=== PATIENT | male | born 1990 | race Two or more races ===

== ENCOUNTER 2021-11-29 10:10 | Inpatient (IN) | payer OTHER, MEDICAID ==
[~2021-11-29] VITALS: Ht 167.6 cm; Wt 127.1 kg
[2021-11-29] MEDS ORDERED: OMEP20 PO (10:23)
[2021-11-29] MEDS ORDERED: IBUP-2071 PO (10:23)
[2021-11-29] MEDS ORDERED: IOHEXOL 350 MG/ML 100 ML VIAL ONE (10:29)
[2021-11-29] MEDS ORDERED: SODIUM CHLORIDE 0.9% 100 ML ONE (10:29)
[2021-11-29] MEDS ORDERED: VANCOMYCIN 1GM/WATER(PEG/NADA) 200 ML IV ONE (10:30)
[2021-11-29] MEDS ORDERED: KETOROLAC TROMETHAMINE 30 MG/ML VIAL IVP ONE (10:30)
[2021-11-29] MEDS ORDERED: ACETAMINOPHEN 500 MG TABLET PO ONE (10:30)
[2021-11-29 10:49] LABS: COVID AG,FIA SOURCE NASOPHARYNGEAL
[2021-11-29 10:55] LABS: BASOPHILS % (AUTO) 0.8 % (0.0-2.0); EOSINOPHILS % (AUTO) 3.1 % (1.0-6.0); HEMATOCRIT 43.9 % (41-53); HEMOGLOBIN 14.2 g/dL (13.5-17.5); LYMPHOCYTES # (AUTO) 2.5 K/uL (1.0-4.8); LYMPHOCYTES % (AUTO) 28.4 % (22.0-44.0); MEAN CORPUSCULAR HEMOGLOBIN 31.4 pg (26.0-34.0); MEAN CORPUSCULAR HGB CONC 32.3 G/dL (31.0-37.0); MEAN CORPUSCULAR VOLUME 97 fL (80-100); MONOCYTES # (AUTO) 0.9 K/uL (0.1-1.0); MONOCYTES % (AUTO) 10.8 % (2.0-9.0); NEUTROPHILS # (AUTO) 4.9 K/uL (1.8-7.7); NEUTROPHILS % (AUTO) 56.9 % (40.0-70.0); PLATELET COUNT (AUTO) 269 K/uL (150-450); RED CELL DISTRIBUTION WIDTH 13.5 % (11.5-14.5)
[2021-11-29 11:01] LABS: ANION GAP 4 mmol/L (8-16); CALCIUM, TOTAL 8.7 mg/dL (8.8-10.5); CARBON DIOXIDE 31 mmol/L (22-29); CHLORIDE 105 mmol/L (98-107); CREATININE 0.76 mg/dL (0.60-1.30); GLOMERULAR FILTR. RATE CALC > 60 mL/min (>60); GLUCOSE,RANDOM 102 mg/dL (70-110); POTASSIUM 3.7 mmol/L (3.5-5.1); SODIUM SERUM 140 mmol/L (136-145); UREA NITROGEN, BLOOD 10 mg/dL (7-18)
[2021-11-29 11:07] LABS: ALANINE AMINOTRANSFERASE 59 U/L (12-78); ALBUMIN 3.7 g/dL (3.4-5.0); ALKALINE PHOSPHATASE 83 U/L (46-116); ASPARTATE AMINOTRANSFERASE 20 U/L (15-37); BILIRUBIN,TOTAL 0.6 mg/dL (0.1-1.0); TOTAL PROTEIN, SERUM 7.4 g/dL (6.4-8.2)
[2021-11-29] MEDS ORDERED: SODIUM CHLORIDE 0.9% 1,000 ML IV ONE (12:45)
[2021-11-29] MEDS ORDERED: CefTRIAXone SODIUM 2 GM in DEXTROSE 5%-WATER 50 ML IV SCH (13:00)
[2021-11-29] MEDS ORDERED: SODIUM CHLORIDE 0.9% 250 ML IV ONE (14:31)
[2021-11-29 15:07] VITALS: BP 131/92
[2021-11-29] MEDS: VANCOMYCIN HCL 1.25 GM in DEXTROSE 5%-WATER 250 ML IV SCH ×2 (16:26→23:45)
[2021-11-29 19:50] VITALS: BP 123/70
[2021-11-29] MEDS: DOCUSATE SODIUM 100 MG CAPSULE PO SCH (21:12)
[2021-11-30 04:00] VITALS: BP 120/61
[2021-11-30 07:36] VITALS: BP 113/76
[2021-11-30 07:52] LABS: ANION GAP 5 mmol/L (8-16); CARBON DIOXIDE 31 mmol/L (22-29); CHLORIDE 104 mmol/L (98-107); CREATININE 0.74 mg/dL (0.60-1.30); GLUCOSE,RANDOM 83 mg/dL (70-110); POTASSIUM 3.8 mmol/L (3.5-5.1); SODIUM SERUM 140 mmol/L (136-145); UREA NITROGEN, BLOOD 10 mg/dL (7-18)
[2021-11-30 07:54] LABS: GLOMERULAR FILTR. RATE CALC > 60 mL/min (>60)
[2021-11-30] MEDS: PANTOPRAZOLE SODIUM 40 MG/VIAL IVP SCH (08:31)
[2021-11-30] MEDS: DOCUSATE SODIUM 100 MG CAPSULE PO SCH ×2 (08:31→21:19)
[2021-11-30] MEDS: VANCOMYCIN HCL 1.25 GM in DEXTROSE 5%-WATER 250 ML IV SCH ×2 (08:40→16:17)
[2021-11-30] MEDS: CEFEPIME HCL 2 GM in DEXTROSE 5%-WATER 50 ML IV SCH ×2 (11:48→18:30)
[2021-11-30] MEDS: MetroNIDAZOLE 500 MG/NACL 100 ML IV SCH ×3 (12:51→23:15)
[2021-11-30 15:40] VITALS: BP 116/67
[2021-11-30 20:22] VITALS: BP 122/70
[2021-11-30 21:44] VITALS: BP 109/77
[2021-11-30] MEDS ORDERED: GADOTERATE MEGLUMINE 10 MMOL/20 ML VIAL IVP ONE (23:41)
[2021-12-01 00:08] VITALS: BP 116/76
[2021-12-01] MEDS: CEFEPIME HCL 2 GM in DEXTROSE 5%-WATER 50 ML IV SCH ×3 (02:00→20:47)
[2021-12-01] MEDS: VANCOMYCIN HCL 1.25 GM in DEXTROSE 5%-WATER 250 ML IV SCH ×2 (02:03→08:32)
[2021-12-01 04:57] VITALS: BP 114/65
[2021-12-01] MEDS: MetroNIDAZOLE 500 MG/NACL 100 ML IV SCH ×4 (05:39→23:23)
[2021-12-01 06:08] LABS: ANION GAP 7 mmol/L (8-16); C-REACTIVE PROTEIN QUANT 0.51 mg/dL (0.00-0.30); CALCIUM, TOTAL 8.8 mg/dL (8.8-10.5); CARBON DIOXIDE 27 mmol/L (22-29); CHLORIDE 103 mmol/L (98-107); CREATININE 0.88 mg/dL (0.60-1.30); GLUCOSE,RANDOM 110 mg/dL (70-110); POTASSIUM 3.4 mmol/L (3.5-5.1); SODIUM SERUM 137 mmol/L (136-145); UREA NITROGEN, BLOOD 12 mg/dL (7-18); VANCOMYCIN,RANDOM 27.6 mcg/mL (25.0-50.0)
[2021-12-01 06:10] LABS: GLOMERULAR FILTR. RATE CALC > 60 mL/min (>60)
[2021-12-01 07:28] VITALS: BP 116/76
[2021-12-01] MEDS: PANTOPRAZOLE SODIUM 40 MG/VIAL IVP SCH (08:32)
[2021-12-01] MEDS: DOCUSATE SODIUM 100 MG CAPSULE PO SCH ×2 (08:32→20:47)
[2021-12-01] MEDS ORDERED: POTASSIUM CHLORIDE 20 MEQ ER TABLET PO PRN (10:15)
[2021-12-01] MEDS ORDERED: POTASSIUM CHL 10 MEQ/WATER 50 ML IV PRN (10:15)
[2021-12-01 11:09] VITALS: BP 125/74
[2021-12-01 15:14] VITALS: BP 126/83
[2021-12-01] MEDS: VANCOMYCIN 1GM/WATER(PEG/NADA) 200 ML IV SCH (16:54)
[2021-12-01 20:17] VITALS: BP 121/80
[2021-12-02 00:28] VITALS: BP 120/77
[2021-12-02] MEDS: VANCOMYCIN 1GM/WATER(PEG/NADA) 200 ML IV SCH ×3 (00:43→15:51)
[2021-12-02] MEDS: CEFEPIME HCL 2 GM in DEXTROSE 5%-WATER 50 ML IV SCH ×3 (02:08→20:00)
[2021-12-02 03:28] LABS: BASOPHILS % (AUTO) 0.5 % (0.0-2.0); EOSINOPHILS % (AUTO) 3.2 % (1.0-6.0); HEMATOCRIT 44.2 % (41-53); HEMOGLOBIN 14.7 g/dL (13.5-17.5); LYMPHOCYTES # (AUTO) 2.9 K/uL (1.0-4.8); LYMPHOCYTES % (AUTO) 30.5 % (22.0-44.0); MEAN CORPUSCULAR HEMOGLOBIN 32.2 pg (26.0-34.0); MEAN CORPUSCULAR HGB CONC 33.3 G/dL (31.0-37.0); MEAN CORPUSCULAR VOLUME 97 fL (80-100); MONOCYTES # (AUTO) 0.8 K/uL (0.1-1.0); MONOCYTES % (AUTO) 8.6 % (2.0-9.0); NEUTROPHILS # (AUTO) 5.4 K/uL (1.8-7.7); NEUTROPHILS % (AUTO) 57.2 % (40.0-70.0); PLATELET COUNT (AUTO) 299 K/uL (150-450); RED BLOOD CELL COUNT(AUTO) 4.57 MIL/uL (4.50-5.90); RED CELL DISTRIBUTION WIDTH 13.6 % (11.5-14.5)
[2021-12-02 04:55] VITALS: BP 109/66
[2021-12-02] MEDS: MetroNIDAZOLE 500 MG/NACL 100 ML IV SCH ×4 (05:35→22:57)
[2021-12-02 07:50] VITALS: BP 125/82
[2021-12-02] MEDS: DOCUSATE SODIUM 100 MG CAPSULE PO SCH ×2 (07:57→20:00)
[2021-12-02] MEDS: PANTOPRAZOLE SODIUM 40 MG/VIAL IVP SCH (08:00)
[2021-12-02] MEDS ORDERED: RINGERS SOLUTION,LACTATED 1,000 ML IV ONE (10:00)
[2021-12-02] MEDS ORDERED: LIDOCAINE 1%/EPI 1:200,000/PF 30 ML VIAL ONE (11:05)
[2021-12-02] MEDS ORDERED: VANCOMYCIN HCL 1 GM/VIAL ONE (11:05)
[2021-12-02] MEDS ORDERED: BACITRACIN 28 GM OINTMENT TP ONE (11:05)
[2021-12-02] MEDS ORDERED: SODIUM CHLORIDE 0.9% 0 ML ONE (11:06)
[2021-12-02] MEDS ORDERED: GELATIN SPONGE,ABSORBABLE 100 MM TP ONE (11:06)
[2021-12-02] MEDS ORDERED: GELATIN SPONGE,ABSORBABLE 50 MM TP ONE (11:06)
[2021-12-02] MEDS ORDERED: MIDAZOLAM HCL 2 MG/2 ML VIAL IVP ONE (12:00)
[2021-12-02] MEDS ORDERED: PROPOFOL 1% 20 ML VIAL IVP ONE (12:00)
[2021-12-02] MEDS ORDERED: ROCURONIUM BROMIDE 10 MG/ML 5 ML VIAL IVP ONE (12:00)
[2021-12-02] MEDS ORDERED: LIDOCAINE/PF 2% 5 ML VIAL IM ONE (12:00)
[2021-12-02] MEDS ORDERED: ONDANSETRON HCL 4 MG/2 ML VIAL IVP ONE (12:00)
[2021-12-02] MEDS ORDERED: FentaNYL CITRATE PF 100 MCG/2 ML VIAL IVP ONE (12:00)
[2021-12-02] MEDS ORDERED: HYDROGEN PEROXIDE 473 ML SOLUTION ONE (12:19)
[2021-12-02] MEDS ORDERED: SUGAMMADEX SODIUM 200 MG/2 ML VIAL IVP ONE ×2 (13:57→13:59)
[2021-12-02] MEDS ORDERED: ACETAMINOPHEN 1000 MG/ISO-OSM 100 ML IV ONE ×2 (14:22→14:30)
[2021-12-02] MEDS: HYDROmorphone HCL 2 MG/ML SYRINGE IVP PRN ×4 (14:29→14:52)
[2021-12-02] MEDS ORDERED: FentaNYL CITRATE PF 100 MCG/2 ML VIAL IVP PRN (14:30)
[2021-12-02] MEDS ORDERED: FentaNYL CITRATE PF 100 MCG/2 ML VIAL ONE (14:40)
[2021-12-02] MEDS ORDERED: HYDROmorphone HCL 2 MG/ML SYRINGE IVP ONE (14:45)
[2021-12-02 16:15] VITALS: BP 126/71
[2021-12-02] MEDS: ONDANSETRON HCL 4 MG/2 ML VIAL IVP PRN (17:30)
[2021-12-02] MEDS: OXYGEN THERAPY IH SCH (20:00)
[2021-12-02 20:30] VITALS: BP 108/77
[2021-12-03 00:33] VITALS: BP 116/70
[2021-12-03] MEDS: VANCOMYCIN 1GM/WATER(PEG/NADA) 200 ML IV SCH (00:42)
[2021-12-03] MEDS: OxyCODONE HCL/ACETAMINOPHEN 5-325 MG TABLET PO PRN ×3 (00:49→18:55)
[2021-12-03] MEDS: CEFEPIME HCL 2 GM in DEXTROSE 5%-WATER 50 ML IV SCH ×3 (02:57→18:55)
[2021-12-03] MEDS: MetroNIDAZOLE 500 MG/NACL 100 ML IV SCH ×4 (05:07→23:16)
[2021-12-03 05:33] VITALS: BP 134/74
[2021-12-03 07:50] VITALS: BP 134/78
[2021-12-03] MEDS: OXYGEN THERAPY IH SCH (08:00)
[2021-12-03] MEDS: PANTOPRAZOLE SODIUM 40 MG/VIAL IVP SCH (08:46)
[2021-12-03] MEDS: VANCOMYCIN HCL 1.25 GM in DEXTROSE 5%-WATER 250 ML IV SCH ×2 (08:46→16:54)
[2021-12-03] MEDS: DOCUSATE SODIUM 100 MG CAPSULE PO SCH ×2 (09:00→19:59)
[2021-12-03 09:48] LABS: ANION GAP 7 mmol/L (8-16); CALCIUM, TOTAL 8.8 mg/dL (8.8-10.5); CARBON DIOXIDE 27 mmol/L (22-29); CHLORIDE 101 mmol/L (98-107); CREATININE 0.99 mg/dL (0.60-1.30); GLOMERULAR FILTR. RATE CALC > 60 mL/min (>60); GLUCOSE,RANDOM 130 mg/dL (70-110); POTASSIUM 3.7 mmol/L (3.5-5.1); SODIUM SERUM 135 mmol/L (136-145); UREA NITROGEN, BLOOD 10 mg/dL (7-18)
[2021-12-03 11:55] VITALS: BP 127/75
[2021-12-03 16:10] VITALS: BP 131/77
[2021-12-03] MEDS ORDERED: SODIUM CHLORIDE 0.9% 250 ML IV ONE (18:51)
[2021-12-03] MEDS ORDERED: SODIUM CHLORIDE 0.9% 500 ML IV ONE (23:24)
[2021-12-04] MEDS: VANCOMYCIN HCL 1.25 GM in DEXTROSE 5%-WATER 250 ML IV SCH ×3 (01:21→17:18)
[2021-12-04] MEDS: OxyCODONE HCL/ACETAMINOPHEN 5-325 MG TABLET PO PRN ×2 (01:27→18:53)
[2021-12-04] MEDS: CEFEPIME HCL 2 GM in DEXTROSE 5%-WATER 50 ML IV SCH ×3 (03:54→18:28)
[2021-12-04] MEDS: MetroNIDAZOLE 500 MG/NACL 100 ML IV SCH ×4 (06:08→23:11)
[2021-12-04 08:00] VITALS: BP 125/72
[2021-12-04] MEDS: OXYGEN THERAPY IH SCH ×2 (08:00→20:00)
[2021-12-04 08:18] LABS: ANION GAP 7 mmol/L (8-16); CALCIUM, TOTAL 8.6 mg/dL (8.8-10.5); CARBON DIOXIDE 27 mmol/L (22-29); CHLORIDE 103 mmol/L (98-107); CREATININE 0.85 mg/dL (0.60-1.30); GLUCOSE,RANDOM 98 mg/dL (70-110); POTASSIUM 3.8 mmol/L (3.5-5.1); SODIUM SERUM 137 mmol/L (136-145); UREA NITROGEN, BLOOD 11 mg/dL (7-18)
[2021-12-04 08:19] LABS: GLOMERULAR FILTR. RATE CALC > 60 mL/min (>60)
[2021-12-04] MEDS: DOCUSATE SODIUM 100 MG CAPSULE PO SCH ×3 (09:00→21:00)
[2021-12-04] MEDS: PANTOPRAZOLE SODIUM 40 MG/VIAL IVP SCH (09:15)
[2021-12-04] MEDS ORDERED: SODIUM CHLORIDE 0.9% 500 ML IV ONE (10:17)
[2021-12-04 16:00] VITALS: BP 120/64
[2021-12-04 19:54] VITALS: BP 122/72
[2021-12-05] MEDS: VANCOMYCIN HCL 1.25 GM in DEXTROSE 5%-WATER 250 ML IV SCH ×3 (00:23→16:09)
[2021-12-05] MEDS: CEFEPIME HCL 2 GM in DEXTROSE 5%-WATER 50 ML IV SCH ×3 (03:05→18:37)
[2021-12-05 03:31] LABS: GLUCOMETER DEV NAME(LOC) 6N.1; GLUCOSE,POINT OF CARE 84 MG/DL (70-110)
[2021-12-05 05:01] VITALS: BP 118/79
[2021-12-05] MEDS: MetroNIDAZOLE 500 MG/NACL 100 ML IV SCH ×3 (05:54→17:34)
[2021-12-05 06:50] LABS: ANION GAP 7 mmol/L (8-16); CALCIUM, TOTAL 8.7 mg/dL (8.8-10.5); CARBON DIOXIDE 29 mmol/L (22-29); CHLORIDE 101 mmol/L (98-107); CREATININE 0.82 mg/dL (0.60-1.30); GLUCOSE,RANDOM 97 mg/dL (70-110); POTASSIUM 3.9 mmol/L (3.5-5.1); SODIUM SERUM 137 mmol/L (136-145); UREA NITROGEN, BLOOD 8 mg/dL (7-18); VANCOMYCIN,RANDOM 20.1 mcg/mL (25.0-50.0)
[2021-12-05 06:56] LABS: GLOMERULAR FILTR. RATE CALC > 60 mL/min (>60)
[2021-12-05 08:00] VITALS: BP 139/76
[2021-12-05] MEDS: OXYGEN THERAPY IH SCH ×2 (08:00→20:00)
[2021-12-05] MEDS: DOCUSATE SODIUM 100 MG CAPSULE PO SCH ×2 (09:00→20:48)
[2021-12-05] MEDS: PANTOPRAZOLE SODIUM 40 MG/VIAL IVP SCH (09:00)
[2021-12-05 15:30] VITALS: BP 116/75
[2021-12-05 20:30] VITALS: BP 126/79
[2021-12-05] MEDS: OxyCODONE HCL/ACETAMINOPHEN 5-325 MG TABLET PO PRN (20:43)
[2021-12-06] MEDS: VANCOMYCIN HCL 1.25 GM in DEXTROSE 5%-WATER 250 ML IV SCH ×3 (00:33→15:05)
[2021-12-06] MEDS: MetroNIDAZOLE 500 MG/NACL 100 ML IV SCH ×5 (00:33→23:37)
[2021-12-06] MEDS: CEFEPIME HCL 2 GM in DEXTROSE 5%-WATER 50 ML IV SCH ×3 (03:21→18:41)
[2021-12-06 04:06] VITALS: BP 132/73
[2021-12-06] MEDS: OXYGEN THERAPY IH SCH ×2 (08:00→20:00)
[2021-12-06 08:10] LABS: ANION GAP 6 mmol/L (8-16); CALCIUM, TOTAL 8.9 mg/dL (8.8-10.5); CARBON DIOXIDE 29 mmol/L (22-29); CHLORIDE 102 mmol/L (98-107); CREATININE 0.75 mg/dL (0.60-1.30); GLOMERULAR FILTR. RATE CALC > 60 mL/min (>60); GLUCOSE,RANDOM 99 mg/dL (70-110); POTASSIUM 3.9 mmol/L (3.5-5.1); SODIUM SERUM 137 mmol/L (136-145); UREA NITROGEN, BLOOD 11 mg/dL (7-18)
[2021-12-06] MEDS: DOCUSATE SODIUM 100 MG CAPSULE PO SCH ×2 (08:21→21:00)
[2021-12-06] MEDS: PANTOPRAZOLE SODIUM 40 MG/VIAL IVP SCH (08:21)
[2021-12-06 08:32] VITALS: BP 132/73
[2021-12-06] MEDS: OxyCODONE HCL/ACETAMINOPHEN 5-325 MG TABLET PO PRN (10:53)
[2021-12-06 16:02] VITALS: BP 129/75
[2021-12-06 20:26] VITALS: BP 123/69
[2021-12-07] MEDS: VANCOMYCIN HCL 1.25 GM in DEXTROSE 5%-WATER 250 ML IV SCH ×2 (00:18→08:30)
[2021-12-07] MEDS: CEFEPIME HCL 2 GM in DEXTROSE 5%-WATER 50 ML IV SCH ×2 (04:18→11:21)
[2021-12-07 04:21] VITALS: BP 124/82
[2021-12-07 06:07] LABS: BASOPHILS % (AUTO) 0.5 % (0.0-2.0); EOSINOPHILS % (AUTO) 2.6 % (1.0-6.0); HEMATOCRIT 41.4 % (41-53); HEMOGLOBIN 13.9 g/dL (13.5-17.5); LYMPHOCYTES # (AUTO) 3.1 K/uL (1.0-4.8); LYMPHOCYTES % (AUTO) 30.4 % (22.0-44.0); MEAN CORPUSCULAR HEMOGLOBIN 32.4 pg (26.0-34.0); MEAN CORPUSCULAR HGB CONC 33.5 G/dL (31.0-37.0); MEAN CORPUSCULAR VOLUME 97 fL (80-100); MONOCYTES # (AUTO) 0.9 K/uL (0.1-1.0); MONOCYTES % (AUTO) 8.3 % (2.0-9.0); NEUTROPHILS # (AUTO) 5.9 K/uL (1.8-7.7); NEUTROPHILS % (AUTO) 58.2 % (40.0-70.0); PLATELET COUNT (AUTO) 287 K/uL (150-450); RED BLOOD CELL COUNT(AUTO) 4.28 MIL/uL (4.50-5.90); RED CELL DISTRIBUTION WIDTH 13.4 % (11.5-14.5)
[2021-12-07] MEDS: MetroNIDAZOLE 500 MG/NACL 100 ML IV SCH ×2 (06:09→12:07)
[2021-12-07 06:25] LABS: ALANINE AMINOTRANSFERASE 109 U/L (12-78); ALBUMIN 3.5 g/dL (3.4-5.0); ALKALINE PHOSPHATASE 71 U/L (46-116); ANION GAP 5 mmol/L (8-16); ASPARTATE AMINOTRANSFERASE 38 U/L (15-37); BILIRUBIN,TOTAL 0.5 mg/dL (0.1-1.0); C-REACTIVE PROTEIN QUANT 0.96 mg/dL (0.00-0.30); CALCIUM, TOTAL 9.2 mg/dL (8.8-10.5); CARBON DIOXIDE 30 mmol/L (22-29); CHLORIDE 101 mmol/L (98-107); CREATININE 0.85 mg/dL (0.60-1.30); GLUCOSE,RANDOM 99 mg/dL (70-110); SODIUM SERUM 136 mmol/L (136-145); TOTAL PROTEIN, SERUM 7.1 g/dL (6.4-8.2); UREA NITROGEN, BLOOD 10 mg/dL (7-18)
[2021-12-07 06:31] LABS: GLOMERULAR FILTR. RATE CALC > 60 mL/min (>60)
[2021-12-07 07:53] VITALS: BP 106/77
[2021-12-07] MEDS: OXYGEN THERAPY IH SCH ×2 (08:00→20:00)
[2021-12-07] MEDS: MULTIVITAMINS, THERAPEUTIC TABLET PO SCH (08:30)
[2021-12-07] MEDS: PANTOPRAZOLE SODIUM 40 MG/VIAL IVP SCH (08:30)
[2021-12-07] MEDS: DOCUSATE SODIUM 100 MG CAPSULE PO SCH ×2 (08:31→20:31)
[2021-12-07] MEDS: OxyCODONE HCL/ACETAMINOPHEN 5-325 MG TABLET PO PRN ×3 (08:32→20:22)
[2021-12-07 15:16] VITALS: BP 110/78
[2021-12-07] MEDS: NAFCILLIN SODIUM 2 GM in DEXTROSE 5%-WATER 100 ML IV SCH ×3 (16:18→23:30)
[2021-12-07] MEDS: MetroNIDAZOLE 500 MG TABLET PO SCH ×2 (17:34→23:41)
[2021-12-07] MEDS ORDERED: SODIUM CHLORIDE 0.9% 500 ML IV ONE (20:04)
[2021-12-07 20:22] VITALS: BP 122/83
[2021-12-07] MEDS: ONDANSETRON HCL 4 MG/2 ML VIAL IVP PRN (20:22)
[2021-12-07 22:01] VITALS: BP 121/68
[2021-12-08] MEDS: NAFCILLIN SODIUM 2 GM in DEXTROSE 5%-WATER 100 ML IV SCH ×6 (03:54→23:41)
[2021-12-08 04:23] VITALS: BP 113/67
[2021-12-08] MEDS: MetroNIDAZOLE 500 MG TABLET PO SCH (05:34)
[2021-12-08 06:48] LABS: ALANINE AMINOTRANSFERASE 96 U/L (12-78); ALBUMIN 3.5 g/dL (3.4-5.0); ALKALINE PHOSPHATASE 67 U/L (46-116); ANION GAP 7 mmol/L (8-16); ASPARTATE AMINOTRANSFERASE 34 U/L (15-37); BILIRUBIN,TOTAL 0.6 mg/dL (0.1-1.0); CALCIUM, TOTAL 9.1 mg/dL (8.8-10.5); CARBON DIOXIDE 32 mmol/L (22-29); CHLORIDE 103 mmol/L (98-107); CREATININE 0.81 mg/dL (0.60-1.30); GLUCOSE,RANDOM 91 mg/dL (70-110); SODIUM SERUM 142 mmol/L (136-145); TOTAL PROTEIN, SERUM 7.4 g/dL (6.4-8.2); UREA NITROGEN, BLOOD 10 mg/dL (7-18)
[2021-12-08 06:59] LABS: GLOMERULAR FILTR. RATE CALC > 60 mL/min (>60)
[2021-12-08] MEDS: OXYGEN THERAPY IH SCH ×2 (08:00→20:00)
[2021-12-08] MEDS: PANTOPRAZOLE SODIUM 40 MG/VIAL IVP SCH (08:05)
[2021-12-08] MEDS: MULTIVITAMINS, THERAPEUTIC TABLET PO SCH (08:06)
[2021-12-08] MEDS: DOCUSATE SODIUM 100 MG CAPSULE PO SCH ×2 (08:06→19:58)
[2021-12-08 08:27] VITALS: BP 109/63
[2021-12-08] MEDS: MetroNIDAZOLE 500 MG/NACL 100 ML IV SCH ×3 (13:25→23:09)
[2021-12-08 15:52] VITALS: BP 117/68
[2021-12-08 19:35] VITALS: BP 117/72
[2021-12-09] MEDS: NAFCILLIN SODIUM 2 GM in DEXTROSE 5%-WATER 100 ML IV SCH ×6 (03:48→23:37)
[2021-12-09 04:00] VITALS: BP 102/66
[2021-12-09] MEDS: MetroNIDAZOLE 500 MG/NACL 100 ML IV SCH ×4 (04:37→22:10)
[2021-12-09] MEDS: MULTIVITAMINS, THERAPEUTIC TABLET PO SCH (08:30)
[2021-12-09 08:48] VITALS: BP 109/74
[2021-12-09] MEDS: DOCUSATE SODIUM 100 MG CAPSULE PO SCH ×2 (09:00→19:56)
[2021-12-09] MEDS: PANTOPRAZOLE SODIUM 40 MG/VIAL IVP SCH (10:35)
[2021-12-09] MEDS: MORPHINE SULFATE 2 MG/ML SYRINGE IVP PRN (14:45)
[2021-12-09 16:40] VITALS: BP 113/66
[2021-12-09 19:55] VITALS: BP 121/68
[2021-12-09] MEDS ORDERED: SODIUM CHLORIDE 0.9% 500 ML IV ONE (23:35)
[2021-12-10] MEDS: NAFCILLIN SODIUM 2 GM in DEXTROSE 5%-WATER 100 ML IV SCH ×5 (04:09→20:22)
[2021-12-10 04:30] VITALS: BP 121/72
[2021-12-10] MEDS: MetroNIDAZOLE 500 MG/NACL 100 ML IV SCH ×4 (05:21→23:22)
[2021-12-10 07:26] LABS: BASOPHILS % (AUTO) 0.6 % (0.0-2.0); EOSINOPHILS % (AUTO) 2.7 % (1.0-6.0); HEMATOCRIT 40.4 % (41-53); HEMOGLOBIN 13.2 g/dL (13.5-17.5); LYMPHOCYTES # (AUTO) 3.2 K/uL (1.0-4.8); LYMPHOCYTES % (AUTO) 32.8 % (22.0-44.0); MEAN CORPUSCULAR HGB CONC 32.8 G/dL (31.0-37.0); MEAN CORPUSCULAR VOLUME 98 fL (80-100); MONOCYTES # (AUTO) 0.9 K/uL (0.1-1.0); MONOCYTES % (AUTO) 8.9 % (2.0-9.0); NEUTROPHILS # (AUTO) 5.4 K/uL (1.8-7.7); PLATELET COUNT (AUTO) 301 K/uL (150-450); RED BLOOD CELL COUNT(AUTO) 4.14 MIL/uL (4.50-5.90); RED CELL DISTRIBUTION WIDTH 13.4 % (11.5-14.5)
[2021-12-10 07:38] LABS: ALANINE AMINOTRANSFERASE 69 U/L (12-78); ALBUMIN 3.4 g/dL (3.4-5.0); ALKALINE PHOSPHATASE 61 U/L (46-116); ANION GAP 4 mmol/L (8-16); ASPARTATE AMINOTRANSFERASE 28 U/L (15-37); BILIRUBIN,TOTAL 0.6 mg/dL (0.1-1.0); CALCIUM, TOTAL 8.9 mg/dL (8.8-10.5); CARBON DIOXIDE 30 mmol/L (22-29); CHLORIDE 104 mmol/L (98-107); CREATININE 0.79 mg/dL (0.60-1.30); GLUCOSE,RANDOM 88 mg/dL (70-110); POTASSIUM 3.7 mmol/L (3.5-5.1); SODIUM SERUM 138 mmol/L (136-145); UREA NITROGEN, BLOOD 10 mg/dL (7-18)
[2021-12-10 07:39] LABS: GLOMERULAR FILTR. RATE CALC > 60 mL/min (>60)
[2021-12-10 07:58] VITALS: BP 118/67
[2021-12-10] MEDS: DOCUSATE SODIUM 100 MG CAPSULE PO SCH ×2 (09:00→20:22)
[2021-12-10] MEDS: PANTOPRAZOLE SODIUM 40 MG/VIAL IVP SCH (09:15)
[2021-12-10] MEDS: MULTIVITAMINS, THERAPEUTIC TABLET PO SCH (16:24)
[2021-12-10 16:37] VITALS: BP 118/73
[2021-12-10 20:22] VITALS: BP 108/63
[2021-12-11] MEDS: NAFCILLIN SODIUM 2 GM in DEXTROSE 5%-WATER 100 ML IV SCH ×7 (00:34→23:11)
[2021-12-11 03:57] VITALS: BP 114/73
[2021-12-11] MEDS: MetroNIDAZOLE 500 MG/NACL 100 ML IV SCH ×4 (04:28→23:11)
[2021-12-11 07:58] VITALS: BP 109/72
[2021-12-11] MEDS: DOCUSATE SODIUM 100 MG CAPSULE PO SCH ×2 (08:01→20:35)
[2021-12-11] MEDS: MULTIVITAMINS, THERAPEUTIC TABLET PO SCH (08:01)
[2021-12-11] MEDS: PANTOPRAZOLE SODIUM 40 MG/VIAL IVP SCH (08:01)
[2021-12-11] MEDS ORDERED: SODIUM CHLORIDE 0.9% 250 ML IV ONE (11:09)
[2021-12-11 15:49] VITALS: BP 116/54
[2021-12-11 20:39] VITALS: BP 107/55
[2021-12-12] MEDS: NAFCILLIN SODIUM 2 GM in DEXTROSE 5%-WATER 100 ML IV SCH ×6 (04:25→23:34)
[2021-12-12] MEDS: MetroNIDAZOLE 500 MG/NACL 100 ML IV SCH ×4 (04:25→23:34)
[2021-12-12] MEDS: OxyCODONE HCL/ACETAMINOPHEN 5-325 MG TABLET PO PRN (04:32)
[2021-12-12 05:42] VITALS: BP 110/68
[2021-12-12 08:04] VITALS: BP 117/76
[2021-12-12] MEDS: MULTIVITAMINS, THERAPEUTIC TABLET PO SCH (08:42)
[2021-12-12] MEDS: PANTOPRAZOLE SODIUM 40 MG/VIAL IVP SCH (08:43)
[2021-12-12] MEDS: DOCUSATE SODIUM 100 MG CAPSULE PO SCH ×2 (08:43→20:32)
[2021-12-12] MEDS ORDERED: SODIUM CHLORIDE 0.9% 500 ML IV ONE (12:36)
[2021-12-12 15:41] VITALS: BP 118/68
[2021-12-12 19:47] VITALS: BP 118/79
[2021-12-12 20:15] VITALS: BP 125/86
[2021-12-13] MEDS: NAFCILLIN SODIUM 2 GM in DEXTROSE 5%-WATER 100 ML IV SCH ×5 (04:26→20:11)
[2021-12-13] MEDS: MetroNIDAZOLE 500 MG/NACL 100 ML IV SCH ×4 (04:27→23:30)
[2021-12-13 04:29] VITALS: BP 107/66
[2021-12-13] MEDS: MULTIVITAMINS, THERAPEUTIC TABLET PO SCH (08:13)
[2021-12-13] MEDS: DOCUSATE SODIUM 100 MG CAPSULE PO SCH ×3 (08:13→20:56)
[2021-12-13] MEDS: PANTOPRAZOLE SODIUM 40 MG/VIAL IVP SCH (08:17)
[2021-12-13 09:46] VITALS: BP 112/74
[2021-12-13 16:00] VITALS: BP 109/67
[2021-12-13 20:47] VITALS: BP 127/78
[2021-12-14] MEDS: NAFCILLIN SODIUM 2 GM in DEXTROSE 5%-WATER 100 ML IV SCH ×6 (00:30→19:46)
[2021-12-14] MEDS: OxyCODONE HCL/ACETAMINOPHEN 5-325 MG TABLET PO PRN (00:59)
[2021-12-14 04:23] VITALS: BP 117/63
[2021-12-14] MEDS ORDERED: SODIUM CHLORIDE 0.9% 500 ML IV ONE ×2 (04:39→08:42)
[2021-12-14] MEDS: MetroNIDAZOLE 500 MG/NACL 100 ML IV SCH ×4 (05:13→23:10)
[2021-12-14 08:06] VITALS: BP 104/63
[2021-12-14] MEDS: PANTOPRAZOLE SODIUM 40 MG/VIAL IVP SCH (08:29)
[2021-12-14] MEDS: DOCUSATE SODIUM 100 MG CAPSULE PO SCH ×2 (08:30→19:47)
[2021-12-14] MEDS: MULTIVITAMINS, THERAPEUTIC TABLET PO SCH (08:31)
[2021-12-14 16:00] VITALS: BP 118/77
[2021-12-14 19:35] VITALS: BP 118/68
[2021-12-15] MEDS: NAFCILLIN SODIUM 2 GM in DEXTROSE 5%-WATER 100 ML IV SCH ×6 (00:36→19:54)
[2021-12-15 04:40] VITALS: BP 111/76
[2021-12-15] MEDS: MetroNIDAZOLE 500 MG/NACL 100 ML IV SCH ×4 (05:13→22:49)
[2021-12-15 07:57] VITALS: BP 125/80
[2021-12-15 08:38] VITALS: BP 119/68
[2021-12-15] MEDS: PANTOPRAZOLE SODIUM 40 MG/VIAL IVP SCH (08:49)
[2021-12-15] MEDS: MULTIVITAMINS, THERAPEUTIC TABLET PO SCH (08:49)
[2021-12-15] MEDS: DOCUSATE SODIUM 100 MG CAPSULE PO SCH ×2 (08:49→20:59)
[2021-12-15 16:28] VITALS: BP 104/61
[2021-12-15] MEDS: LACTOBAC ACID/BULG/BIFID/THERM TABLET PO SCH (20:01)
[2021-12-15 20:30] VITALS: BP 115/69
[2021-12-16] MEDS: NAFCILLIN SODIUM 2 GM in DEXTROSE 5%-WATER 100 ML IV SCH ×7 (00:23→23:16)
[2021-12-16] MEDS: MetroNIDAZOLE 500 MG/NACL 100 ML IV SCH ×4 (05:09→23:16)
[2021-12-16 05:56] VITALS: BP 100/60
[2021-12-16 06:04] LABS: BASOPHILS % (AUTO) 0.6 % (0.0-2.0); EOSINOPHILS % (AUTO) 4.2 % (1.0-6.0); HEMATOCRIT 42.5 % (41-53); LYMPHOCYTES # (AUTO) 3.1 K/uL (1.0-4.8); LYMPHOCYTES % (AUTO) 39.3 % (22.0-44.0); MEAN CORPUSCULAR HEMOGLOBIN 32.1 pg (26.0-34.0); MEAN CORPUSCULAR HGB CONC 32.8 G/dL (31.0-37.0); MEAN CORPUSCULAR VOLUME 98 fL (80-100); MONOCYTES # (AUTO) 0.8 K/uL (0.1-1.0); MONOCYTES % (AUTO) 9.6 % (2.0-9.0); NEUTROPHILS # (AUTO) 3.7 K/uL (1.8-7.7); NEUTROPHILS % (AUTO) 46.3 % (40.0-70.0); PLATELET COUNT (AUTO) 300 K/uL (150-450); RED BLOOD CELL COUNT(AUTO) 4.35 MIL/uL (4.50-5.90); RED CELL DISTRIBUTION WIDTH 13.9 % (11.5-14.5)
[2021-12-16 06:31] LABS: ANION GAP 5 mmol/L (8-16); CALCIUM, TOTAL 8.5 mg/dL (8.8-10.5); CARBON DIOXIDE 29 mmol/L (22-29); CHLORIDE 107 mmol/L (98-107); CREATININE 0.76 mg/dL (0.60-1.30); GLUCOSE,RANDOM 116 mg/dL (70-110); POTASSIUM 3.5 mmol/L (3.5-5.1); SODIUM SERUM 141 mmol/L (136-145); UREA NITROGEN, BLOOD 8 mg/dL (7-18)
[2021-12-16 06:36] LABS: GLOMERULAR FILTR. RATE CALC > 60 mL/min (>60)
[2021-12-16] MEDS: DOCUSATE SODIUM 100 MG CAPSULE PO SCH ×2 (08:24→20:27)
[2021-12-16] MEDS: PANTOPRAZOLE SODIUM 40 MG/VIAL IVP SCH (08:24)
[2021-12-16] MEDS: MULTIVITAMINS, THERAPEUTIC TABLET PO SCH (08:24)
[2021-12-16] MEDS: LACTOBAC ACID/BULG/BIFID/THERM TABLET PO SCH ×2 (08:24→20:20)
[2021-12-16 08:33] VITALS: BP 125/65
[2021-12-16 15:40] VITALS: BP 137/69
[2021-12-16 19:55] VITALS: BP 132/88
[2021-12-16] MEDS: ZOLPIDEM TARTRATE 5 MG TABLET PO PRN (23:21)
[2021-12-17] MEDS: NAFCILLIN SODIUM 2 GM in DEXTROSE 5%-WATER 100 ML IV SCH ×6 (04:35→23:40)
[2021-12-17] MEDS: MetroNIDAZOLE 500 MG/NACL 100 ML IV SCH ×4 (04:36→23:40)
[2021-12-17 05:30] VITALS: BP 115/64
[2021-12-17 08:23] VITALS: BP 117/70
[2021-12-17] MEDS: DOCUSATE SODIUM 100 MG CAPSULE PO SCH ×2 (09:00→20:42)
[2021-12-17] MEDS: MULTIVITAMINS, THERAPEUTIC TABLET PO SCH (09:25)
[2021-12-17] MEDS: LACTOBAC ACID/BULG/BIFID/THERM TABLET PO SCH ×2 (09:27→20:34)
[2021-12-17] MEDS: PANTOPRAZOLE SODIUM 40 MG/VIAL IVP SCH (09:29)
[2021-12-17 15:53] VITALS: BP 126/76
[2021-12-17 19:20] VITALS: BP 139/92
[2021-12-17] MEDS: OxyCODONE HCL/ACETAMINOPHEN 5-325 MG TABLET PO PRN (20:34)
[2021-12-18] MEDS: OxyCODONE HCL/ACETAMINOPHEN 5-325 MG TABLET PO PRN ×3 (00:37→20:01)
[2021-12-18 04:02] VITALS: BP 114/66
[2021-12-18] MEDS: NAFCILLIN SODIUM 2 GM in DEXTROSE 5%-WATER 100 ML IV SCH ×6 (04:10→23:45)
[2021-12-18] MEDS: MetroNIDAZOLE 500 MG/NACL 100 ML IV SCH ×4 (04:11→23:46)
[2021-12-18] MEDS: MULTIVITAMINS, THERAPEUTIC TABLET PO SCH (07:56)
[2021-12-18] MEDS: LACTOBAC ACID/BULG/BIFID/THERM TABLET PO SCH ×2 (07:56→20:02)
[2021-12-18] MEDS: PANTOPRAZOLE SODIUM 40 MG/VIAL IVP SCH (07:57)
[2021-12-18 08:00] VITALS: BP 136/83
[2021-12-18] MEDS: DOCUSATE SODIUM 100 MG CAPSULE PO SCH ×2 (08:02→21:00)
[2021-12-18 19:55] VITALS: BP 126/71
[2021-12-18] MEDS ORDERED: SODIUM CHLORIDE 0.9% 500 ML IV ONE ×2 (23:49)
[2021-12-19] MEDS: MetroNIDAZOLE 500 MG/NACL 100 ML IV SCH ×4 (04:40→23:01)
[2021-12-19] MEDS: NAFCILLIN SODIUM 2 GM in DEXTROSE 5%-WATER 100 ML IV SCH ×5 (04:40→20:34)
[2021-12-19] MEDS: OxyCODONE HCL/ACETAMINOPHEN 5-325 MG TABLET PO PRN ×3 (04:50→20:34)
[2021-12-19 04:53] VITALS: BP 106/69
[2021-12-19 07:27] VITALS: BP 114/72
[2021-12-19] MEDS: LACTOBAC ACID/BULG/BIFID/THERM TABLET PO SCH ×2 (07:55→20:34)
[2021-12-19] MEDS: PANTOPRAZOLE SODIUM 40 MG/VIAL IVP SCH (07:56)
[2021-12-19] MEDS: MULTIVITAMINS, THERAPEUTIC TABLET PO SCH (07:56)
[2021-12-19] MEDS: DOCUSATE SODIUM 100 MG CAPSULE PO SCH ×2 (08:02→20:40)
[2021-12-19] MEDS: MUPIROCIN CALCIUM 2% 15 GM CREAM TP SCH (14:01)
[2021-12-19 14:58] VITALS: BP 116/65
[2021-12-19 20:10] VITALS: BP 131/79
[2021-12-20] MEDS: NAFCILLIN SODIUM 2 GM in DEXTROSE 5%-WATER 100 ML IV SCH ×6 (00:13→20:51)
[2021-12-20 04:15] VITALS: BP 109/60
[2021-12-20] MEDS: MetroNIDAZOLE 500 MG/NACL 100 ML IV SCH ×3 (05:13→19:24)
[2021-12-20 05:23] LABS: BASOPHILS % (AUTO) 0.7 % (0.0-2.0); EOSINOPHILS % (AUTO) 3.8 % (1.0-6.0); HEMOGLOBIN 14.5 g/dL (13.5-17.5); LYMPHOCYTES # (AUTO) 2.5 K/uL (1.0-4.8); LYMPHOCYTES % (AUTO) 38.2 % (22.0-44.0); MEAN CORPUSCULAR VOLUME 97 fL (80-100); MONOCYTES # (AUTO) 0.6 K/uL (0.1-1.0); MONOCYTES % (AUTO) 9.3 % (2.0-9.0); NEUTROPHILS # (AUTO) 3.2 K/uL (1.8-7.7); PLATELET COUNT (AUTO) 288 K/uL (150-450); RED BLOOD CELL COUNT(AUTO) 4.54 MIL/uL (4.50-5.90); RED CELL DISTRIBUTION WIDTH 14.3 % (11.5-14.5)
[2021-12-20 05:40] LABS: ALANINE AMINOTRANSFERASE 80 U/L (12-78); ALBUMIN 3.5 g/dL (3.4-5.0); ALKALINE PHOSPHATASE 66 U/L (46-116); ANION GAP 6 mmol/L (8-16); ASPARTATE AMINOTRANSFERASE 31 U/L (15-37); BILIRUBIN,TOTAL 0.4 mg/dL (0.1-1.0); C-REACTIVE PROTEIN QUANT 0.31 mg/dL (0.00-0.30); CALCIUM, TOTAL 8.7 mg/dL (8.8-10.5); CARBON DIOXIDE 30 mmol/L (22-29); CHLORIDE 103 mmol/L (98-107); GLUCOSE,RANDOM 112 mg/dL (70-110); POTASSIUM 3.9 mmol/L (3.5-5.1); SODIUM SERUM 139 mmol/L (136-145); TOTAL PROTEIN, SERUM 7.1 g/dL (6.4-8.2); UREA NITROGEN, BLOOD 11 mg/dL (7-18)
[2021-12-20 05:45] LABS: GLOMERULAR FILTR. RATE CALC > 60 mL/min (>60)
[2021-12-20 08:12] VITALS: BP 115/86
[2021-12-20] MEDS: DOCUSATE SODIUM 100 MG CAPSULE PO SCH ×2 (09:00→20:32)
[2021-12-20] MEDS: MULTIVITAMINS, THERAPEUTIC TABLET PO SCH (09:21)
[2021-12-20] MEDS: LACTOBAC ACID/BULG/BIFID/THERM TABLET PO SCH ×2 (09:22→20:32)
[2021-12-20] MEDS: PANTOPRAZOLE SODIUM 40 MG/VIAL IVP SCH (09:22)
[2021-12-20] MEDS: MUPIROCIN CALCIUM 2% 15 GM CREAM TP SCH (09:23)
[2021-12-20] MEDS ORDERED: SODIUM CHLORIDE 0.9% 500 ML IV ONE (09:32)
[2021-12-20] MEDS: OxyCODONE HCL/ACETAMINOPHEN 5-325 MG TABLET PO PRN (12:43)
[2021-12-20 15:45] VITALS: BP 110/70
[2021-12-20 20:09] VITALS: BP 122/76
[2021-12-21] MEDS: NAFCILLIN SODIUM 2 GM in DEXTROSE 5%-WATER 100 ML IV SCH ×7 (00:36→23:57)
[2021-12-21] MEDS: MetroNIDAZOLE 500 MG/NACL 100 ML IV SCH ×4 (01:20→18:34)
[2021-12-21 05:40] VITALS: BP 106/76
[2021-12-21] MEDS: OxyCODONE HCL/ACETAMINOPHEN 5-325 MG TABLET PO PRN (06:08)
[2021-12-21 08:10] VITALS: BP 122/79
[2021-12-21] MEDS: LACTOBAC ACID/BULG/BIFID/THERM TABLET PO SCH ×2 (08:18→19:53)
[2021-12-21] MEDS: PANTOPRAZOLE SODIUM 40 MG/VIAL IVP SCH (08:19)
[2021-12-21] MEDS: MULTIVITAMINS, THERAPEUTIC TABLET PO SCH (08:19)
[2021-12-21] MEDS: MUPIROCIN CALCIUM 2% 15 GM CREAM TP SCH (08:20)
[2021-12-21] MEDS: DOCUSATE SODIUM 100 MG CAPSULE PO SCH ×2 (08:22→21:00)
[2021-12-21 15:28] VITALS: BP 128/79
[2021-12-21 19:35] VITALS: BP 130/87
[2021-12-21] MEDS: ZOLPIDEM TARTRATE 5 MG TABLET PO PRN (23:59)
[2021-12-22] MEDS: MetroNIDAZOLE 500 MG/NACL 100 ML IV SCH ×4 (01:04→20:30)
[2021-12-22 03:45] VITALS: BP 116/72
[2021-12-22] MEDS: NAFCILLIN SODIUM 2 GM in DEXTROSE 5%-WATER 100 ML IV SCH ×5 (03:56→20:16)
[2021-12-22 08:09] VITALS: BP 122/87
[2021-12-22] MEDS: LACTOBAC ACID/BULG/BIFID/THERM TABLET PO SCH ×2 (08:14→20:16)
[2021-12-22] MEDS: MULTIVITAMINS, THERAPEUTIC TABLET PO SCH (08:15)
[2021-12-22] MEDS: DOCUSATE SODIUM 100 MG CAPSULE PO SCH ×2 (08:16→21:00)
[2021-12-22] MEDS: PANTOPRAZOLE SODIUM 40 MG/VIAL IVP SCH (08:17)
[2021-12-22 08:36] VITALS: BP 106/71
[2021-12-22] MEDS: OxyCODONE HCL/ACETAMINOPHEN 5-325 MG TABLET PO PRN ×2 (08:54→20:16)
[2021-12-22] MEDS: MUPIROCIN CALCIUM 2% 15 GM CREAM TP SCH (12:53)
[2021-12-22 15:58] VITALS: BP 123/69
[2021-12-22 19:53] VITALS: BP 125/75
[2021-12-23] MEDS: NAFCILLIN SODIUM 2 GM in DEXTROSE 5%-WATER 100 ML IV SCH ×7 (00:08→23:08)
[2021-12-23] MEDS: MetroNIDAZOLE 500 MG/NACL 100 ML IV SCH ×4 (01:20→18:54)
[2021-12-23 05:30] VITALS: BP 104/76
[2021-12-23] MEDS: OxyCODONE HCL/ACETAMINOPHEN 5-325 MG TABLET PO PRN ×2 (06:51→19:53)
[2021-12-23] MEDS: MULTIVITAMINS, THERAPEUTIC TABLET PO SCH (07:54)
[2021-12-23] MEDS: LACTOBAC ACID/BULG/BIFID/THERM TABLET PO SCH ×2 (07:54→19:53)
[2021-12-23] MEDS: PANTOPRAZOLE SODIUM 40 MG/VIAL IVP SCH (07:54)
[2021-12-23] MEDS: DOCUSATE SODIUM 100 MG CAPSULE PO SCH ×2 (07:55→19:57)
[2021-12-23] MEDS: MUPIROCIN CALCIUM 2% 15 GM CREAM TP SCH (07:55)
[2021-12-23 08:15] VITALS: BP 134/81
[2021-12-23 15:45] VITALS: BP 113/68
[2021-12-23 19:33] VITALS: BP 129/83
[2021-12-23] MEDS ORDERED: SODIUM CHLORIDE 0.9% 500 ML IV ONE (19:47)
[2021-12-23] MEDS: MORPHINE SULFATE 2 MG/ML SYRINGE IVP PRN (23:03)
[2021-12-24] MEDS: MetroNIDAZOLE 500 MG/NACL 100 ML IV SCH ×4 (00:57→19:50)
[2021-12-24] MEDS: NAFCILLIN SODIUM 2 GM in DEXTROSE 5%-WATER 100 ML IV SCH ×6 (03:36→23:59)
[2021-12-24 04:28] VITALS: BP 118/70
[2021-12-24 07:27] VITALS: BP 101/56
[2021-12-24] MEDS: LACTOBAC ACID/BULG/BIFID/THERM TABLET PO SCH ×2 (08:26→21:37)
[2021-12-24] MEDS: DOCUSATE SODIUM 100 MG CAPSULE PO SCH ×2 (08:26→21:00)
[2021-12-24] MEDS: PANTOPRAZOLE SODIUM 40 MG/VIAL IVP SCH (08:26)
[2021-12-24] MEDS: MULTIVITAMINS, THERAPEUTIC TABLET PO SCH (08:26)
[2021-12-24] MEDS: MUPIROCIN CALCIUM 2% 15 GM CREAM TP SCH (08:27)
[2021-12-24 15:41] VITALS: BP 104/65
[2021-12-25] MEDS ORDERED: SODIUM CHLORIDE 0.9% 500 ML IV ONE (00:05)
[2021-12-25] MEDS: ACETAMINOPHEN 325 MG TABLET PO PRN (00:11)
[2021-12-25] MEDS: MetroNIDAZOLE 500 MG/NACL 100 ML IV SCH ×4 (01:17→20:01)
[2021-12-25] MEDS: NAFCILLIN SODIUM 2 GM in DEXTROSE 5%-WATER 100 ML IV SCH ×5 (04:03→21:14)
[2021-12-25 04:29] VITALS: BP 109/66
[2021-12-25 08:00] VITALS: BP 119/81
[2021-12-25] MEDS: LACTOBAC ACID/BULG/BIFID/THERM TABLET PO SCH ×2 (08:28→20:01)
[2021-12-25] MEDS: MULTIVITAMINS, THERAPEUTIC TABLET PO SCH (08:28)
[2021-12-25] MEDS: OxyCODONE HCL/ACETAMINOPHEN 5-325 MG TABLET PO PRN ×2 (08:28→21:17)
[2021-12-25] MEDS: PANTOPRAZOLE SODIUM 40 MG/VIAL IVP SCH (08:29)
[2021-12-25] MEDS: DOCUSATE SODIUM 100 MG CAPSULE PO SCH ×2 (08:29→21:00)
[2021-12-25] MEDS: MUPIROCIN CALCIUM 2% 15 GM CREAM TP SCH (08:30)
[2021-12-25 19:57] VITALS: BP 137/88
[2021-12-26] MEDS: NAFCILLIN SODIUM 2 GM in DEXTROSE 5%-WATER 100 ML IV SCH ×7 (00:08→23:54)
[2021-12-26] MEDS: MetroNIDAZOLE 500 MG/NACL 100 ML IV SCH ×4 (02:23→18:18)
[2021-12-26 04:53] VITALS: BP 116/70
[2021-12-26] MEDS: DOCUSATE SODIUM 100 MG CAPSULE PO SCH ×3 (08:16→21:16)
[2021-12-26] MEDS: PANTOPRAZOLE SODIUM 40 MG/VIAL IVP SCH (08:16)
[2021-12-26] MEDS: LACTOBAC ACID/BULG/BIFID/THERM TABLET PO SCH ×2 (08:16→21:16)
[2021-12-26] MEDS: MULTIVITAMINS, THERAPEUTIC TABLET PO SCH (08:16)
[2021-12-26] MEDS ORDERED: SODIUM CHLORIDE 0.9% 500 ML IV ONE (08:23)
[2021-12-26 08:36] VITALS: BP 133/79
[2021-12-26] MEDS: MUPIROCIN CALCIUM 2% 15 GM CREAM TP SCH (15:44)
[2021-12-26 15:47] VITALS: BP 108/73
[2021-12-26 20:05] VITALS: BP 119/69
[2021-12-27] MEDS: MetroNIDAZOLE 500 MG/NACL 100 ML IV SCH ×4 (02:25→20:04)
[2021-12-27 04:17] VITALS: BP 128/78
[2021-12-27] MEDS: NAFCILLIN SODIUM 2 GM in DEXTROSE 5%-WATER 100 ML IV SCH ×5 (04:27→21:42)
[2021-12-27 07:43] LABS: BASOPHILS % (AUTO) 0.6 % (0.0-2.0); EOSINOPHILS % (AUTO) 2.6 % (1.0-6.0); HEMATOCRIT 47.5 % (41-53); HEMOGLOBIN 15.7 g/dL (13.5-17.5); LYMPHOCYTES # (AUTO) 2.7 K/uL (1.0-4.8); LYMPHOCYTES % (AUTO) 31.5 % (22.0-44.0); MEAN CORPUSCULAR HEMOGLOBIN 32.1 pg (26.0-34.0); MEAN CORPUSCULAR VOLUME 97 fL (80-100); MONOCYTES # (AUTO) 0.8 K/uL (0.1-1.0); MONOCYTES % (AUTO) 9.2 % (2.0-9.0); NEUTROPHILS # (AUTO) 4.8 K/uL (1.8-7.7); NEUTROPHILS % (AUTO) 56.1 % (40.0-70.0); PLATELET COUNT (AUTO) 299 K/uL (150-450); RED BLOOD CELL COUNT(AUTO) 4.88 MIL/uL (4.50-5.90); RED CELL DISTRIBUTION WIDTH 14.4 % (11.5-14.5)
[2021-12-27] MEDS: OxyCODONE HCL/ACETAMINOPHEN 5-325 MG TABLET PO PRN (07:49)
[2021-12-27 08:08] LABS: ALANINE AMINOTRANSFERASE 79 U/L (12-78); ALBUMIN 3.9 g/dL (3.4-5.0); ALKALINE PHOSPHATASE 63 U/L (46-116); ANION GAP 6 mmol/L (8-16); ASPARTATE AMINOTRANSFERASE 27 U/L (15-37); BILIRUBIN,TOTAL 0.8 mg/dL (0.1-1.0); C-REACTIVE PROTEIN QUANT 0.31 mg/dL (0.00-0.30); CALCIUM, TOTAL 9.4 mg/dL (8.8-10.5); CARBON DIOXIDE 31 mmol/L (22-29); CHLORIDE 100 mmol/L (98-107); CREATININE 0.88 mg/dL (0.60-1.30); GLUCOSE,RANDOM 88 mg/dL (70-110); POTASSIUM 3.9 mmol/L (3.5-5.1); SODIUM SERUM 137 mmol/L (136-145); TOTAL PROTEIN, SERUM 8.2 g/dL (6.4-8.2); UREA NITROGEN, BLOOD 10 mg/dL (7-18)
[2021-12-27 08:10] LABS: GLOMERULAR FILTR. RATE CALC > 60 mL/min (>60)
[2021-12-27 08:22] VITALS: BP 129/87
[2021-12-27] MEDS: MULTIVITAMINS, THERAPEUTIC TABLET PO SCH (08:53)
[2021-12-27] MEDS: MUPIROCIN CALCIUM 2% 15 GM CREAM TP SCH (08:54)
[2021-12-27] MEDS: DOCUSATE SODIUM 100 MG CAPSULE PO SCH ×3 (08:54→20:15)
[2021-12-27] MEDS: LACTOBAC ACID/BULG/BIFID/THERM TABLET PO SCH ×2 (08:54→20:04)
[2021-12-27] MEDS: PANTOPRAZOLE SODIUM 40 MG/VIAL IVP SCH (08:54)
[2021-12-27 15:29] VITALS: BP_SYST 102; BP_SYST 118; BP_DIAS 67; BP_DIAS 79
[2021-12-27 20:00] VITALS: BP_SYST 100; BP_SYST 121; BP_DIAS 60; BP_DIAS 79
[2021-12-28] MEDS: NAFCILLIN SODIUM 2 GM in DEXTROSE 5%-WATER 100 ML IV SCH ×6 (01:17→20:21)
[2021-12-28] MEDS: MetroNIDAZOLE 500 MG/NACL 100 ML IV SCH ×4 (01:59→18:02)
[2021-12-28 04:25] VITALS: BP 125/83
[2021-12-28 07:55] VITALS: BP 96/59
[2021-12-28] MEDS: LACTOBAC ACID/BULG/BIFID/THERM TABLET PO SCH ×2 (08:26→20:21)
[2021-12-28] MEDS: MULTIVITAMINS, THERAPEUTIC TABLET PO SCH (08:26)
[2021-12-28] MEDS: PANTOPRAZOLE SODIUM 40 MG/VIAL IVP SCH (08:26)
[2021-12-28] MEDS: MUPIROCIN CALCIUM 2% 15 GM CREAM TP SCH (08:27)
[2021-12-28] MEDS: DOCUSATE SODIUM 100 MG CAPSULE PO SCH ×2 (08:27→20:22)
[2021-12-28] MEDS: OxyCODONE HCL/ACETAMINOPHEN 5-325 MG TABLET PO PRN (14:30)
[2021-12-28 16:19] VITALS: BP 126/91
[2021-12-28 19:53] VITALS: BP 129/84
[2021-12-28 20:35] VITALS: BP 123/79
[2021-12-29] MEDS: NAFCILLIN SODIUM 2 GM in DEXTROSE 5%-WATER 100 ML IV SCH ×7 (00:51→23:00)
[2021-12-29] MEDS: MetroNIDAZOLE 500 MG/NACL 100 ML IV SCH ×4 (01:34→19:15)
[2021-12-29 05:05] VITALS: BP 123/75
[2021-12-29] MEDS ORDERED: SODIUM CHLORIDE 0.9% 500 ML IV ONE (06:32)
[2021-12-29 08:00] VITALS: BP 120/71
[2021-12-29] MEDS: MULTIVITAMINS, THERAPEUTIC TABLET PO SCH (08:13)
[2021-12-29] MEDS: LACTOBAC ACID/BULG/BIFID/THERM TABLET PO SCH ×2 (08:13→20:00)
[2021-12-29] MEDS: MUPIROCIN CALCIUM 2% 15 GM CREAM TP SCH (08:18)
[2021-12-29] MEDS: PANTOPRAZOLE SODIUM 40 MG/VIAL IVP SCH (08:18)
[2021-12-29] MEDS: DOCUSATE SODIUM 100 MG CAPSULE PO SCH ×2 (08:18→20:00)
[2021-12-29 15:42] VITALS: BP 115/67
[2021-12-29 19:35] VITALS: BP 115/68
[2021-12-30] MEDS: MetroNIDAZOLE 500 MG/NACL 100 ML IV SCH ×4 (00:05→18:23)
[2021-12-30] MEDS: NAFCILLIN SODIUM 2 GM in DEXTROSE 5%-WATER 100 ML IV SCH ×5 (04:11→20:33)
[2021-12-30 04:30] VITALS: BP 113/74
[2021-12-30] MEDS: ACETAMINOPHEN 325 MG TABLET PO PRN (06:19)
[2021-12-30 08:09] VITALS: BP 124/66
[2021-12-30] MEDS: DOCUSATE SODIUM 100 MG CAPSULE PO SCH ×2 (08:30→20:39)
[2021-12-30] MEDS: MULTIVITAMINS, THERAPEUTIC TABLET PO SCH (08:30)
[2021-12-30] MEDS: LACTOBAC ACID/BULG/BIFID/THERM TABLET PO SCH ×2 (08:30→20:33)
[2021-12-30] MEDS: PANTOPRAZOLE SODIUM 40 MG/VIAL IVP SCH (08:30)
[2021-12-30] MEDS: MUPIROCIN CALCIUM 2% 15 GM CREAM TP SCH (08:35)
[2021-12-30 16:09] VITALS: BP 111/74
[2021-12-30 20:13] VITALS: BP 128/71
[2021-12-31] MEDS ORDERED: SODIUM CHLORIDE 0.9% 500 ML IV ONE (00:27)
[2021-12-31] MEDS: NAFCILLIN SODIUM 2 GM in DEXTROSE 5%-WATER 100 ML IV SCH ×7 (00:31→23:46)
[2021-12-31] MEDS: MetroNIDAZOLE 500 MG/NACL 100 ML IV SCH ×4 (01:20→18:27)
[2021-12-31 05:30] VITALS: BP 126/79
[2021-12-31 07:50] VITALS: BP 122/72
[2021-12-31] MEDS: DOCUSATE SODIUM 100 MG CAPSULE PO SCH ×2 (08:52→21:20)
[2021-12-31] MEDS: MULTIVITAMINS, THERAPEUTIC TABLET PO SCH (08:52)
[2021-12-31] MEDS: LACTOBAC ACID/BULG/BIFID/THERM TABLET PO SCH ×2 (08:52→21:20)
[2021-12-31] MEDS: PANTOPRAZOLE SODIUM 40 MG/VIAL IVP SCH (08:52)
[2021-12-31] MEDS: MUPIROCIN CALCIUM 2% 15 GM CREAM TP SCH (08:53)
[2021-12-31] MEDS: OxyCODONE HCL/ACETAMINOPHEN 5-325 MG TABLET PO PRN (08:57)
[2021-12-31 16:11] VITALS: BP 105/60
[2021-12-31 20:00] VITALS: BP 103/65
[2022-01-01] MEDS: MetroNIDAZOLE 500 MG/NACL 100 ML IV SCH ×4 (00:52→18:50)
[2022-01-01 03:50] VITALS: BP 112/69
[2022-01-01] MEDS: NAFCILLIN SODIUM 2 GM in DEXTROSE 5%-WATER 100 ML IV SCH ×6 (04:03→23:31)
[2022-01-01] MEDS ORDERED: SODIUM CHLORIDE 0.9% 500 ML IV ONE (05:21)
[2022-01-01 07:18] VITALS: BP 118/91
[2022-01-01] MEDS: LACTOBAC ACID/BULG/BIFID/THERM TABLET PO SCH ×2 (08:38→20:27)
[2022-01-01] MEDS: PANTOPRAZOLE SODIUM 40 MG/VIAL IVP SCH (08:38)
[2022-01-01] MEDS: DOCUSATE SODIUM 100 MG CAPSULE PO SCH ×2 (08:38→20:27)
[2022-01-01] MEDS: MULTIVITAMINS, THERAPEUTIC TABLET PO SCH (08:38)
[2022-01-01] MEDS: MUPIROCIN CALCIUM 2% 15 GM CREAM TP SCH (08:39)
[2022-01-01 16:00] VITALS: BP 127/79
[2022-01-01 19:20] VITALS: BP 106/74
[2022-01-02] MEDS: MetroNIDAZOLE 500 MG/NACL 100 ML IV SCH ×4 (01:11→19:50)
[2022-01-02 04:10] VITALS: BP 109/74
[2022-01-02] MEDS: NAFCILLIN SODIUM 2 GM in DEXTROSE 5%-WATER 100 ML IV SCH ×6 (04:19→23:39)
[2022-01-02 06:33] LABS: ANION GAP 9 mmol/L (8-16); CALCIUM, TOTAL 9.2 mg/dL (8.8-10.5); CARBON DIOXIDE 29 mmol/L (22-29); CHLORIDE 101 mmol/L (98-107); CREATININE 0.95 mg/dL (0.60-1.30); GLUCOSE,RANDOM 175 mg/dL (70-110); POTASSIUM 3.8 mmol/L (3.5-5.1); SODIUM SERUM 139 mmol/L (136-145); UREA NITROGEN, BLOOD 9 mg/dL (7-18)
[2022-01-02 06:35] LABS: BASOPHILS % (AUTO) 0.4 % (0.0-2.0); EOSINOPHILS % (AUTO) 2.9 % (1.0-6.0); HEMATOCRIT 45.2 % (41-53); LYMPHOCYTES % (AUTO) 32.6 % (22.0-44.0); MEAN CORPUSCULAR HEMOGLOBIN 32.3 pg (26.0-34.0); MEAN CORPUSCULAR HGB CONC 33.2 G/dL (31.0-37.0); MEAN CORPUSCULAR VOLUME 97 fL (80-100); MONOCYTES # (AUTO) 0.4 K/uL (0.1-1.0); MONOCYTES % (AUTO) 6.8 % (2.0-9.0); NEUTROPHILS # (AUTO) 3.5 K/uL (1.8-7.7); NEUTROPHILS % (AUTO) 57.3 % (40.0-70.0); PLATELET COUNT (AUTO) 297 K/uL (150-450); RED BLOOD CELL COUNT(AUTO) 4.65 MIL/uL (4.50-5.90); RED CELL DISTRIBUTION WIDTH 14.6 % (11.5-14.5)
[2022-01-02] MEDS: OxyCODONE HCL/ACETAMINOPHEN 5-325 MG TABLET PO PRN ×2 (06:43→19:55)
[2022-01-02 06:44] LABS: GLOMERULAR FILTR. RATE CALC > 60 mL/min (>60)
[2022-01-02 08:22] VITALS: BP 111/70
[2022-01-02] MEDS: MULTIVITAMINS, THERAPEUTIC TABLET PO SCH (08:45)
[2022-01-02] MEDS: LACTOBAC ACID/BULG/BIFID/THERM TABLET PO SCH ×2 (08:45→20:56)
[2022-01-02] MEDS: PANTOPRAZOLE SODIUM 40 MG/VIAL IVP SCH (08:46)
[2022-01-02] MEDS: DOCUSATE SODIUM 100 MG CAPSULE PO SCH ×2 (08:47→21:00)
[2022-01-02] MEDS: MUPIROCIN CALCIUM 2% 15 GM CREAM TP SCH (08:48)
[2022-01-02 11:43] VITALS: BP 117/77
[2022-01-02 16:04] VITALS: BP 123/68
[2022-01-02 19:18] VITALS: BP 125/74
[2022-01-03] MEDS: MetroNIDAZOLE 500 MG/NACL 100 ML IV SCH ×4 (02:03→18:26)
[2022-01-03 04:05] VITALS: BP 112/64
[2022-01-03] MEDS: NAFCILLIN SODIUM 2 GM in DEXTROSE 5%-WATER 100 ML IV SCH ×5 (04:52→20:31)
[2022-01-03 07:53] VITALS: BP 117/65
[2022-01-03] MEDS: MULTIVITAMINS, THERAPEUTIC TABLET PO SCH (08:37)
[2022-01-03] MEDS: LACTOBAC ACID/BULG/BIFID/THERM TABLET PO SCH ×2 (08:37→20:31)
[2022-01-03] MEDS: OxyCODONE HCL/ACETAMINOPHEN 5-325 MG TABLET PO PRN (08:38)
[2022-01-03] MEDS: PANTOPRAZOLE SODIUM 40 MG/VIAL IVP SCH (08:38)
[2022-01-03] MEDS: DOCUSATE SODIUM 100 MG CAPSULE PO SCH ×2 (08:38→20:48)
[2022-01-03] MEDS: MUPIROCIN CALCIUM 2% 15 GM CREAM TP SCH (08:39)
[2022-01-03 16:00] VITALS: BP 103/69
[2022-01-03] MEDS ORDERED: SODIUM CHLORIDE 0.9% 500 ML IV ONE (20:29)
[2022-01-03 20:36] VITALS: BP 120/70
[2022-01-04] MEDS: NAFCILLIN SODIUM 2 GM in DEXTROSE 5%-WATER 100 ML IV SCH ×7 (00:35→23:48)
[2022-01-04] MEDS: MetroNIDAZOLE 500 MG/NACL 100 ML IV SCH ×4 (01:42→18:29)
[2022-01-04 05:10] VITALS: BP 110/75
[2022-01-04 08:00] VITALS: BP 117/73
[2022-01-04] MEDS: DOCUSATE SODIUM 100 MG CAPSULE PO SCH ×2 (08:35→20:08)
[2022-01-04] MEDS: MUPIROCIN CALCIUM 2% 15 GM CREAM TP SCH (08:35)
[2022-01-04] MEDS: MULTIVITAMINS, THERAPEUTIC TABLET PO SCH (08:35)
[2022-01-04] MEDS: LACTOBAC ACID/BULG/BIFID/THERM TABLET PO SCH ×2 (08:35→19:59)
[2022-01-04] MEDS: PANTOPRAZOLE SODIUM 40 MG/VIAL IVP SCH (08:35)
[2022-01-04 16:00] VITALS: BP 133/73
[2022-01-04 19:49] VITALS: BP 116/63
[2022-01-05] MEDS: MetroNIDAZOLE 500 MG/NACL 100 ML IV SCH ×4 (00:39→18:03)
[2022-01-05] MEDS: NAFCILLIN SODIUM 2 GM in DEXTROSE 5%-WATER 100 ML IV SCH ×6 (03:56→23:46)
[2022-01-05 05:15] VITALS: BP 113/66
[2022-01-05 08:00] VITALS: BP 130/84
[2022-01-05] MEDS: DOCUSATE SODIUM 100 MG CAPSULE PO SCH ×2 (08:45→21:00)
[2022-01-05] MEDS: PANTOPRAZOLE SODIUM 40 MG/VIAL IVP SCH (08:45)
[2022-01-05] MEDS: LACTOBAC ACID/BULG/BIFID/THERM TABLET PO SCH ×2 (08:45→19:54)
[2022-01-05] MEDS: MULTIVITAMINS, THERAPEUTIC TABLET PO SCH (08:45)
[2022-01-05] MEDS: MUPIROCIN CALCIUM 2% 15 GM CREAM TP SCH (08:53)
[2022-01-05 15:05] VITALS: BP 117/71
[2022-01-05 19:55] VITALS: BP 118/69
[2022-01-06] MEDS: MetroNIDAZOLE 500 MG/NACL 100 ML IV SCH ×4 (00:30→18:29)
[2022-01-06] MEDS: NAFCILLIN SODIUM 2 GM in DEXTROSE 5%-WATER 100 ML IV SCH ×6 (04:21→23:59)
[2022-01-06 04:50] VITALS: BP 122/65
[2022-01-06 07:44] VITALS: BP 111/66
[2022-01-06] MEDS: LACTOBAC ACID/BULG/BIFID/THERM TABLET PO SCH ×2 (08:18→20:44)
[2022-01-06] MEDS: MULTIVITAMINS, THERAPEUTIC TABLET PO SCH (08:18)
[2022-01-06] MEDS: PANTOPRAZOLE SODIUM 40 MG/VIAL IVP SCH (08:19)
[2022-01-06] MEDS: MUPIROCIN CALCIUM 2% 15 GM CREAM TP SCH (08:19)
[2022-01-06] MEDS: DOCUSATE SODIUM 100 MG CAPSULE PO SCH ×2 (08:20→20:50)
[2022-01-06 15:39] VITALS: BP 105/68
[2022-01-06 20:48] VITALS: BP 121/69
[2022-01-07] MEDS: MetroNIDAZOLE 500 MG/NACL 100 ML IV SCH ×4 (00:47→18:39)
[2022-01-07 04:45] VITALS: BP 103/69
[2022-01-07] MEDS: NAFCILLIN SODIUM 2 GM in DEXTROSE 5%-WATER 100 ML IV SCH ×6 (04:46→23:38)
[2022-01-07] MEDS: MULTIVITAMINS, THERAPEUTIC TABLET PO SCH (07:47)
[2022-01-07] MEDS: LACTOBAC ACID/BULG/BIFID/THERM TABLET PO SCH ×2 (07:47→19:35)
[2022-01-07] MEDS: PANTOPRAZOLE SODIUM 40 MG/VIAL IVP SCH (07:48)
[2022-01-07 07:54] VITALS: BP 117/74
[2022-01-07] MEDS: DOCUSATE SODIUM 100 MG CAPSULE PO SCH ×2 (07:57→19:37)
[2022-01-07] MEDS ORDERED: SODIUM CHLORIDE 0.9% 500 ML IV ONE (10:45)
[2022-01-07 15:31] VITALS: BP 108/66
[2022-01-07 19:18] VITALS: BP 106/69
[2022-01-08] MEDS: MetroNIDAZOLE 500 MG/NACL 100 ML IV SCH ×4 (00:20→18:43)
[2022-01-08] MEDS: NAFCILLIN SODIUM 2 GM in DEXTROSE 5%-WATER 100 ML IV SCH ×6 (03:48→23:35)
[2022-01-08 04:22] VITALS: BP 100/65
[2022-01-08 05:50] LABS: BASOPHILS % (AUTO) 0.5 % (0.0-2.0); EOSINOPHILS % (AUTO) 4.1 % (1.0-6.0); HEMATOCRIT 42.4 % (41-53); HEMOGLOBIN 14.3 g/dL (13.5-17.5); LYMPHOCYTES # (AUTO) 1.9 K/uL (1.0-4.8); LYMPHOCYTES % (AUTO) 30.1 % (22.0-44.0); MEAN CORPUSCULAR HEMOGLOBIN 32.4 pg (26.0-34.0); MEAN CORPUSCULAR HGB CONC 33.6 G/dL (31.0-37.0); MEAN CORPUSCULAR VOLUME 97 fL (80-100); MONOCYTES # (AUTO) 0.7 K/uL (0.1-1.0); MONOCYTES % (AUTO) 11.9 % (2.0-9.0); NEUTROPHILS # (AUTO) 3.3 K/uL (1.8-7.7); NEUTROPHILS % (AUTO) 53.4 % (40.0-70.0); PLATELET COUNT (AUTO) 271 K/uL (150-450); RED CELL DISTRIBUTION WIDTH 14.9 % (11.5-14.5)
[2022-01-08 06:06] LABS: ALANINE AMINOTRANSFERASE 50 U/L (12-78); ALBUMIN 3.2 g/dL (3.4-5.0); ALKALINE PHOSPHATASE 54 U/L (46-116); ANION GAP 8 mmol/L (8-16); ASPARTATE AMINOTRANSFERASE 19 U/L (15-37); BILIRUBIN,TOTAL 0.8 mg/dL (0.1-1.0); CALCIUM, TOTAL 8.5 mg/dL (8.8-10.5); CARBON DIOXIDE 26 mmol/L (22-29); CHLORIDE 106 mmol/L (98-107); CREATININE 0.78 mg/dL (0.60-1.30); GLUCOSE,RANDOM 115 mg/dL (70-110); POTASSIUM 3.5 mmol/L (3.5-5.1); SODIUM SERUM 140 mmol/L (136-145); UREA NITROGEN, BLOOD 10 mg/dL (7-18)
[2022-01-08 06:09] LABS: GLOMERULAR FILTR. RATE CALC > 60 mL/min (>60)
[2022-01-08] MEDS: MetFORMIN HCL 500 MG TABLET PO SCH ×2 (08:00→18:00)
[2022-01-08 08:04] VITALS: BP 122/78
[2022-01-08] MEDS: LACTOBAC ACID/BULG/BIFID/THERM TABLET PO SCH ×2 (08:12→20:38)
[2022-01-08] MEDS: PANTOPRAZOLE SODIUM 40 MG/VIAL IVP SCH (08:12)
[2022-01-08] MEDS: MULTIVITAMINS, THERAPEUTIC TABLET PO SCH (08:12)
[2022-01-08] MEDS: DOCUSATE SODIUM 100 MG CAPSULE PO SCH ×2 (08:17→21:00)
[2022-01-08] MEDS ORDERED: SODIUM CHLORIDE 0.9% 500 ML IV ONE (09:42)
[2022-01-08 16:34] VITALS: BP 99/62
[2022-01-09] MEDS: MetroNIDAZOLE 500 MG/NACL 100 ML IV SCH ×4 (00:48→19:46)
[2022-01-09] MEDS: NAFCILLIN SODIUM 2 GM in DEXTROSE 5%-WATER 100 ML IV SCH ×5 (03:46→20:52)
[2022-01-09 04:05] VITALS: BP 100/60
[2022-01-09 07:30] VITALS: BP 93/70
[2022-01-09] MEDS: DOCUSATE SODIUM 100 MG CAPSULE PO SCH ×2 (08:36→20:58)
[2022-01-09] MEDS: MULTIVITAMINS, THERAPEUTIC TABLET PO SCH (08:36)
[2022-01-09] MEDS: MetFORMIN HCL 500 MG TABLET PO SCH ×2 (08:37→18:00)
[2022-01-09] MEDS: LACTOBAC ACID/BULG/BIFID/THERM TABLET PO SCH ×2 (08:37→20:52)
[2022-01-09] MEDS: PANTOPRAZOLE SODIUM 40 MG/VIAL IVP SCH (08:37)
[2022-01-09 15:09] VITALS: BP 127/66
[2022-01-09 19:50] VITALS: BP 113/72
[2022-01-09] MEDS: ZOLPIDEM TARTRATE 5 MG TABLET PO PRN (20:52)
[2022-01-10] MEDS: NAFCILLIN SODIUM 2 GM in DEXTROSE 5%-WATER 100 ML IV SCH ×4 (00:31→11:05)
[2022-01-10] MEDS: MetroNIDAZOLE 500 MG/NACL 100 ML IV SCH ×3 (01:35→12:13)
[2022-01-10 04:45] VITALS: BP 107/69
[2022-01-10] MEDS: MetFORMIN HCL 500 MG TABLET PO SCH (08:00)
[2022-01-10] MEDS: DOCUSATE SODIUM 100 MG CAPSULE PO SCH (08:20)
[2022-01-10] MEDS: PANTOPRAZOLE SODIUM 40 MG/VIAL IVP SCH (08:21)
[2022-01-10] MEDS: MULTIVITAMINS, THERAPEUTIC TABLET PO SCH (08:21)
[2022-01-10] MEDS: LACTOBAC ACID/BULG/BIFID/THERM TABLET PO SCH (08:21)
[2022-01-10 08:46] VITALS: BP 124/76
== END 2022-01-10 15:26 | disposition home or self-care (01) | DRG 902 ==
LOC: EMS 10:13 → 6S 13:31 → 5S 11-30 21:33 → 6S 12-03 18:30
PROVIDERS: ADMIT Internal Medicine; ATTEND Internal Medicine
PROC: 0JB00ZZ Excision of Scalp Subcutaneous Tissue and Fascia, Open Approach (ICD-10-PCS; 2021-12-02)
PROC: 0NB00ZZ Excision of Skull, Open Approach (ICD-10-PCS; principal; 2021-12-02 11:45)
PROC: 05HB33Z Insertion of Infusion Device into Right Basilic Vein, Percutaneous Approach (ICD-10-PCS; 2021-12-05)
DX: T85.79XA Infection and inflammatory reaction due to other internal prosthetic devices, implants and grafts, initial encounter (principal); E44.0 Moderate protein-calorie malnutrition; Z68.42 Body mass index [BMI] 45.0-49.9, adult; E66.01 Morbid (severe) obesity due to excess calories; Z20.822 Contact with and (suspected) exposure to COVID-19; E11.9 Type 2 diabetes mellitus without complications; Y83.8 Other surgical procedures as the cause of abnormal reaction of the patient, or of later complication, without mention of misadventure at the time of the procedure; G93.89 Other specified disorders of brain; Z86.79 Personal history of other diseases of the circulatory system; Y92.89 Other specified places as the place of occurrence of the external cause
CPT/HCPCS: 36245; 36569; 70470; 71045; 76937; 80048; 80053; 80202; 82962; 83036; 83605; 83735; 84132; 84145; 85025; 85730; 86140; 87015; 87040; 87070; 87081; 87101; 87186; 87205; 87206; 97110; 97112; 97116; 97162; 97166; 97530; 97535; 99285; C9113; J0131; J0692; J0696; J1170; J1885; J2250; J2270; J2405; J2704; J3010; J3370; J3490; J7030; J7040; J7050; J7060; J7120; Q9967; 36415-L1; 36415-TC; Z7610